=== PATIENT | male | born 1960 | race Two or more races ===

== ENCOUNTER 2021-03-16 09:45 | Inpatient (IN) | payer MEDICARE, MEDICAID ==
[~2021-03-16] VITALS: Ht 175.3 cm; Wt 72.0 kg
[2021-03-16] MEDS ORDERED: cloNIDine HCL 0.1 MG TAB PO ONE ×2 (10:00→11:00)
[2021-03-16 10:42] LABS: Basophils # (auto) 0.1 10 ^3/uL (0-0.2); Eosinophils # (auto) 0.1 10 ^3/uL (0-0.8); Eosinophils % (auto) 1.3 % (0.0-7.0); Hematocrit 37.6 % (41.0-53.0); Lymphocytes # (auto) 0.6 10 ^3/uL (0.4-5.4); Lymphocytes % (auto) 10.2 % (10.0-50.0); Mean Corpuscular Hemoglobin 29.5 pg (28.0-32.0); Mean Corpuscular Hgb Conc. 31.9 g/dL (32.0-36.0); Mean Corpuscular Volume 92.5 fL (80.0-100.0); Monocytes # (auto) 0.3 10 ^3/uL (0-1.3); Monocytes % (auto) 5.2 % (0.0-12.0); Neutrophils # (auto) 4.6 10 ^3/uL (1.6-8.6); Neutrophils % (auto) 82.3 % (37.0-80.0); Red Blood Cells 4.07 10^6/uL (4.5-5.90); Red Cell Distribution Width 16.4 % (11.8-14.3); White Blood Cell 5.6 10^3/uL (4.4-10.8)
[2021-03-16 10:57] LABS: INR 1.07 (0.9-1.15); Partial Thromboplastin Time 30.7 sec (23.6-33.0)
[2021-03-16] MEDS ORDERED: LORazepam 0.5 MG TAB PO ONE (11:00)
[2021-03-16 11:05] LABS: Albumin 3.4 g/dL (3.4-5.0); Anion Gap 11 (5-15); BUN/Creatinine Ratio 10.2; Calcium 10.1 mg/dL (8.5-10.1); Carbon Dioxide 25 mmol/L (21-32); Chloride 101 mmol/L (98-107); GFR African American 9 mL/min; GFR Non-African American 8 mL/min; Glucose 137 mg/dL (74-106); Sodium 137 mmol/L (136-145)
[2021-03-16 11:09] LABS: Blood Urea Nitrogen 80 mg/dL (7-18); Potassium 5.8 mmol/L (3.5-5.1)
[2021-03-16 11:12] LABS: Alanine Aminotransferase 20 U/L (16-61); Alkaline Phosphatase 136 U/L (45-117); Aspartate Aminotransferase 14 U/L (15-37); Bilirubin, Total 0.4 mg/dL (0.2-1.0); Total Protein 9.2 g/dL (6.4-8.2)
[2021-03-16] MEDS ORDERED: LABETALOL HCL 5 MG/ML 4ML SYRINGE IV PRN (16:00)
[2021-03-16] MEDS ORDERED: ALBUTEROL SULF 2.5 MG/0.5ML(0.5%) NEB SOLN NEB ONE (16:00)
[2021-03-16] MEDS ORDERED: NITROGLYCERIN 0.4 MG SL TAB SL PRN (16:00)
[2021-03-16] MEDS ORDERED: CALCIUM GLUC 1,000mg/50ml-NS 50 ML IV ONE (16:00)
[2021-03-16] MEDS ORDERED: InsuLIN REG 1unit/0.01ml Soln (100units/ml) IV ONE (16:00)
[2021-03-16] MEDS ORDERED: DEXTROSE (50%) 50ML SYRG IV ONE (16:00)
[2021-03-16] MEDS ORDERED: SODIUM ZIRCONIUM CYCL 10 GM PAK PO ONE (16:00)
[2021-03-16] MEDS ORDERED: MORPHINE SULFATE INJECTION 2 MG/ML SYRG IV PRN (16:00)
[2021-03-16] MEDS ORDERED: cefTRIAXone 1GM/50ML D5W 50 ML IV ONE (16:15)
[2021-03-16] MEDS: MORPHINE SULFATE INJECTION 2 MG/ML SYRG IV PRN ×2 (16:35→22:32)
[2021-03-16] MEDS ORDERED: SODIUM CHL 0.9% 1000 ML BAG XX ONE (17:00)
[2021-03-16] MEDS: CLINDAMYCIN 300MG IV 50 ML IV SCH (18:13)
[2021-03-16 20:34] VITALS: BP 192/94
[2021-03-16 22:00] VITALS: BP 192/94
[2021-03-17] MEDS: CLINDAMYCIN 300MG IV 50 ML IV SCH ×3 (02:11→18:20)
[2021-03-17 03:45] VITALS: BP 190/92
[2021-03-17] MEDS: hydrALAZINE HCL 25 MG TAB PO PRN ×2 (04:09→18:21)
[2021-03-17 05:00] VITALS: BP 146/75
[2021-03-17 05:14] LABS: Basophils # (auto) 0 10 ^3/uL (0-0.2); Basophils % (auto) 0.5 % (0.0-2.0); Eosinophils # (auto) 0.1 10 ^3/uL (0-0.8); Eosinophils % (auto) 1.3 % (0.0-7.0); Hematocrit 35.3 % (41.0-53.0); Hemoglobin 11.7 g/dL (13.5-17.5); Lymphocytes # (auto) 0.7 10 ^3/uL (0.4-5.4); Lymphocytes % (auto) 11.1 % (10.0-50.0); Mean Corpuscular Hemoglobin 30.4 pg (28.0-32.0); Mean Corpuscular Hgb Conc. 33.2 g/dL (32.0-36.0); Mean Corpuscular Volume 91.4 fL (80.0-100.0); Monocytes # (auto) 0.4 10 ^3/uL (0-1.3); Monocytes % (auto) 7.1 % (0.0-12.0); Neutrophils # (auto) 4.7 10 ^3/uL (1.6-8.6); Nucleated Red Blood Cells % 0.1 %; Red Blood Cells 3.86 10^6/uL (4.5-5.90); Red Cell Distribution Width 16.3 % (11.8-14.3); White Blood Cell 5.9 10^3/uL (4.4-10.8)
[2021-03-17 05:42] LABS: Albumin 2.9 g/dL (3.4-5.0); Calcium 10.3 mg/dL (8.5-10.1)
[2021-03-17 05:45] LABS: BUN/Creatinine Ratio 11.6
[2021-03-17 05:48] LABS: Bilirubin, Total 0.5 mg/dL (0.2-1.0); Total Protein 8.6 g/dL (6.4-8.2)
[2021-03-17 06:14] LABS: Potassium 6.4 mmol/L (3.5-5.1)
[2021-03-17] MEDS ORDERED: ALBUTEROL SULF 2.5 MG/0.5ML(0.5%) NEB SOLN NEB ONE (07:30)
[2021-03-17] MEDS ORDERED: SODIUM ZIRCONIUM CYCL 10 GM PAK PO ONE (07:30)
[2021-03-17] MEDS ORDERED: SODIUM BICARBONATE 8.4 % INJ 50ML VIAL IV ONE (07:30)
[2021-03-17] MEDS ORDERED: InsuLIN REG 1unit/0.01ml Soln (100units/ml) IV ONE (07:30)
[2021-03-17] MEDS ORDERED: DEXTROSE (50%) 50ML SYRG IV ONE (07:30)
[2021-03-17] MEDS ORDERED: CALCIUM GLUC 1,000mg/50ml-NS 50 ML IV ONE (07:30)
[2021-03-17 09:00] VITALS: BP 181/84
[2021-03-17] MEDS: cefTRIAXone 1GM/50ML D5W 50 ML IV SCH (09:00)
[2021-03-17] MEDS ORDERED: diphenhdrAMINE HCL 50 MG/1 ML VL IV PRN (09:15)
[2021-03-17] MEDS ORDERED: diphenhdrAMINE HCL 50 MG/1 ML VL IV ONE (09:30)
[2021-03-17] MEDS: PANTOPRAZOLE 40 MG TAB PO SCH (10:00)
[2021-03-17] MEDS: MORPHINE SULFATE INJECTION 2 MG/ML SYRG IV PRN (11:54)
[2021-03-17 13:00] VITALS: BP 137/62
[2021-03-17 17:00] VITALS: BP 151/79
[2021-03-17] MEDS: SEVELAMER 800 MG TAB PO SCH (18:20)
[2021-03-17] MEDS: HYDROcodone-ACET 5/325MG TAB PO PRN (20:54)
[2021-03-17 22:00] VITALS: BP 142/80
[2021-03-17] MEDS: MUPIROCIN 2% OINT 15gm or 22gm EACHNOSTRI SCH (22:00)
[2021-03-18] MEDS: CLINDAMYCIN 300MG IV 50 ML IV SCH ×3 (02:00→18:36)
[2021-03-18 05:35] VITALS: BP 150/69
[2021-03-18 06:56] LABS: Calcium 10.5 mg/dL (8.5-10.1)
[2021-03-18 06:58] LABS: BUN/Creatinine Ratio 10.5; Phosphorus 6.1 mg/dL (2.5-4.90)
[2021-03-18 08:47] LABS: Potassium 5.6 mmol/L (3.5-5.1)
[2021-03-18 09:00] VITALS: BP 159/76
[2021-03-18] MEDS ORDERED: SODIUM ZIRCONIUM CYCL 10 GM PAK PO SCH (09:00)
[2021-03-18] MEDS ORDERED: DEXTROSE (50%) 50ML SYRG IV ONE (09:30)
[2021-03-18] MEDS ORDERED: InsuLIN REG 1unit/0.01ml Soln (100units/ml) IV ONE (09:30)
[2021-03-18] MEDS: MUPIROCIN 2% OINT 15gm or 22gm EACHNOSTRI SCH ×2 (10:44→22:00)
[2021-03-18] MEDS: cefTRIAXone 1GM/50ML D5W 50 ML IV SCH (10:45)
[2021-03-18] MEDS: PANTOPRAZOLE 40 MG TAB PO SCH (10:45)
[2021-03-18] MEDS: hydrALAZINE HCL 25 MG TAB PO PRN (10:45)
[2021-03-18] MEDS: SEVELAMER 800 MG TAB PO SCH ×3 (10:47→18:20)
[2021-03-18 12:39] VITALS: BP 126/75
[2021-03-18] MEDS: SODIUM ZIRCONIUM CYCL 10 GM PAK PO SCH ×3 (14:00→23:07)
[2021-03-18 17:00] VITALS: BP 142/74
[2021-03-18 22:00] VITALS: BP 118/66
[2021-03-19] MEDS: HYDROcodone-ACET 5/325MG TAB PO PRN ×2 (04:47→13:11)
[2021-03-19 05:00] VITALS: BP 130/72
[2021-03-19 06:26] LABS: Calcium 10.9 mg/dL (8.5-10.1)
[2021-03-19 06:43] LABS: Potassium 5.8 mmol/L (3.5-5.1)
[2021-03-19] MEDS ORDERED: SODIUM CHL 0.9% 1000 ML BAG XX ONE (07:00)
[2021-03-19] MEDS: SEVELAMER 800 MG TAB PO SCH ×2 (08:51→12:00)
[2021-03-19 09:00] VITALS: BP 145/73
[2021-03-19] MEDS: PANTOPRAZOLE 40 MG TAB PO SCH (10:00)
[2021-03-19] MEDS: MUPIROCIN 2% OINT 15gm or 22gm EACHNOSTRI SCH (10:00)
[2021-03-19 12:45] VITALS: BP 144/68
== END 2021-03-19 14:01 | disposition home or self-care (01) | DRG 553 ==
LOC: ER 09:45 → TELE 15:48 → TELE-WESTW 20:41
PROVIDERS: ADMIT Emergency Medicine; ATTEND Internal Medicine
PROC: 5A1D70Z Performance of Urinary Filtration, Intermittent, Less than 6 Hours Per Day (ICD-10-PCS; principal; 2021-03-17)
PROC: 0S9C3ZZ Drainage of Right Knee Joint, Percutaneous Approach (ICD-10-PCS; 2021-03-18)
PROC: 5A1D70Z Performance of Urinary Filtration, Intermittent, Less than 6 Hours Per Day (ICD-10-PCS; 2021-03-19)
DX: M25.061 Hemarthrosis, right knee (principal); N18.6 End stage renal disease; L03.115 Cellulitis of right lower limb; N25.81 Secondary hyperparathyroidism of renal origin; I12.0 Hypertensive chronic kidney disease with stage 5 chronic kidney disease or end stage renal disease; Z20.822 Contact with and (suspected) exposure to COVID-19; S80.11XA Contusion of right lower leg, initial encounter; I16.0 Hypertensive urgency; Z99.2 Dependence on renal dialysis; E87.5 Hyperkalemia; D63.1 Anemia in chronic kidney disease; E83.39 Other disorders of phosphorus metabolism; W18.39XA Other fall on same level, initial encounter; Y93.89 Activity, other specified; Y92.89 Other specified places as the place of occurrence of the external cause; Y99.8 Other external cause status
CPT/HCPCS: 36415; 71045; 73700; 76942; 80048; 80053; 82550; 82962; 83880; 83970; 84100; 84132; 84484; 85025; 85610; 85652; 85730; 87081; 87205; 87340; 87426; 89051; 89060; 90935; 93971; 94640; 96365; 96367; 96375; G0378; J0696; J1815; J3490